=== PATIENT | male | born 1955 | race Caucasian/White ===

== ENCOUNTER 2019-02-14 11:44 | Observation (INO) | payer MEDICARE, OTHER ==
[~2019-02-14] VITALS: Ht 175.3 cm; Wt 114.4 kg
--- NOTE | 2019-02-14 12:06 | RAD ---
EXAM: CT Head without IV contrast CLINICAL HISTORY: COMPARISON: None. TECHNIQUE: Routine CT of the head without contrast. Soft tissues and bone windows were reviewed. PQRS compliance statement - One or more of the following individualized dose reduction techniques were utilized for this study: 1. Automated exposure control 2. Adjustment of the mA and/or kV according to patient size 3. Use of iterative reconstruction technique FINDINGS: There is no evidence of hemorrhage, mass or extra-axial fluid collection. Briscoe-white differentiation is maintained with no evidence of edema. A few foci of subcortical and periventricular white matter hypoattenuation likely changes of chronic small vessel disease. There is no mass effect or shift of the intracranial structures. The ventricles, basilar cisterns and cortical sulci are normal in size and configuration for the patients stated age. The cerebellum and brainstem are unremarkable. The calvarium demonstrates no evidence of fracture or focal lesion. Patchy ethmoid air cell opacification may be seen with sinusitis. Otherwise the paranasal sinuses and mastoid air cells are clear. The visualized portions of the orbits are normal. IMPRESSION: 1. No evidence for acute intracranial hemorrhage. 2. Patchy ethmoid air cell opacification may be seen with sinusitis. 3. Minimal white matter changes likely be seen with chronic small vessel disease Findings of no evidence for acute cranial hemorrhage were discussed with Dr. Navas at 12:00 PM, 02/14/2019. Electronically signed by: Darin Carson MD (02/14/2019 12:02 PM) [facility]
[2019-02-14 12:19] LABS: HEMATOCRIT 50.9 % (39.0-53.0); HEMOGLOBIN 17.5 g/dL (13.0-17.5); RED BLOOD COUNT 5.43 x10^6/uL (4.30-5.70); RED CELL DISTRIBUTION WIDTH 13.5 % (11.5-14.5); WHITE BLOOD COUNT 8.6 x10^3/uL (4.0-11.0)
[2019-02-14 12:28] LABS: ALBUMIN/GLOBULIN RATIO 1.1 (1.0-1.7); CALCIUM 9.4 mg/dL (8.5-10.1); CREATININE 1.1 mg/dL (0.7-1.3); GFR 67.8; TOTAL BILIRUBIN 0.7 mg/dL (0.2-1.0); TOTAL PROTEIN 7.7 g/dL (6.4-8.2)
--- NOTE | 2019-02-14 12:45 | PHYS DOC ---
Past History Past Medical History: Anxiety, Arrhythmia, Depression, Diabetes, High Cholesterol, Hypertension, Migraines, Other Past Surgical History: Tonsillectomy, Other Smoking: Non-smoker Alcohol Use: Rarely Drug Use: None Adult General Chief Complaint Chief Complaint: NEURO SYMPTOMS/DEFICITS HPI HPI 63-year-old male presents with right-sided facial droop and concern for stroke. The patient was last seen normal at 11 AM. He does not have speech difficulty. He does not have any weakness or loss of coordination. He feels like the right side of his face has different sensation. He is also holding his right arm elevated, but has full motion with it. He denies headache or vision changes. No history of CVA. He has been feeling well prior to this episode. Denies fever or chills. The patient walked into the ED and to his room. Review of Systems Review of Systems Constitutional: Denies fever or chills [] Eyes: Denies change in visual acuity, redness, or eye pain [] HENT: Denies nasal congestion or sore throat [] Respiratory: Denies cough or shortness of breath [] Cardiovascular: No additional information not addressed in HPI [] GI: Denies abdominal pain, nausea, vomiting, bloody stools or diarrhea [] : Denies dysuria or hematuria [] Musculoskeletal: Denies back pain or joint pain [] Integument: Denies rash or skin lesions [] Neurologic: Denies headache. R sided facial numbness. "Strange" feeling in R arm. [] Endocrine: Denies polyuria or polydipsia [] All other systems were reviewed and found to be within normal limits, except as documented in this note. Allergies Allergies Allergies Coded Allergies Type Severity Reaction Last Updated Verified No Known Drug Allergies 08/17/15 No Physical Exam Physical Exam Constitutional: Well developed, well nourished, no acute distress, non-toxic appearance. [] HENT: Normocephalic, atraumatic, bilateral external ears normal, oropharynx moist, no oral exudates, nose normal. [] Eyes: PERRLA, EOMI, conjunctiva normal, no discharge. [] Neck: Normal range of motion, no tenderness, supple, no stridor. [] Cardiovascular:Heart rate regular rhythm, no murmur [] Lungs & Thorax: Bilateral breath sounds clear to auscultation [] Abdomen: Bowel sounds normal, soft, no tenderness, no masses, no pulsatile masses. [] Skin: Warm, dry, no erythema, no rash. [] Back: No tenderness, no CVA tenderness. [] Extremities: No tenderness, no cyanosis, no clubbing, ROM intact, no edema. [] Neurologic: Alert and oriented X 3, See NIH scale below. The facial assymetry is more on the left with smile, but the decreased sensation and inability to lift eyebrow is on the right. [] Psychologic: Affect normal, judgement normal, mood normal. [] Current Patient Data Vital Signs Vital Signs Date Time Temp Pulse Resp B/P (MAP) Pulse Ox O2 Delivery O2 Flow Rate FiO2 02/14/19 11:54 98.2 76 18 93 Room Air 02/14/19 11:53 146/81 (102) Lab Results Laboratory Tests Test 02/14/19 12:01 02/14/19 12:02 Glucose (Fingerstick) 204 mg/dL (70-99) H White Blood Count 8.6 x10^3/uL (4.0-11.0) Red Blood Count 5.43 x10^6/uL (4.30-5.70) Hemoglobin 17.5 g/dL (13.0-17.5) Hematocrit 50.9 % (39.0-53.0) Mean Corpuscular Volume 94 fL (79-100) Mean Corpuscular Hemoglobin 32 pg (25-35) Mean Corpuscular Hemoglobin Concent 34 g/dL (31-37) Red Cell Distribution Width 13.5 % (11.5-14.5) Platelet Count 179 x10^3/uL (140-400) Prothrombin Time 10.9 SEC (9.4-11.4) Prothrombin Time INR 1.1 (0.9-1.1) Activated Partial Thromboplast Time 30 SEC (23-33) Sodium Level 140 mmol/L (136-145) Potassium Level 4.0 mmol/L (3.5-5.1) Chloride Level 101 mmol/L (98-107) Carbon Dioxide Level 29 mmol/L (21-32) Anion Gap 10 (6-14) Blood Urea Nitrogen 11 mg/dL (8-26) Creatinine 1.1 mg/dL (0.7-1.3) Estimated GFR (Cockcroft-Gault) 67.8 BUN/Creatinine Ratio 10 (6-20) Glucose Level 217 mg/dL (70-99) H Calcium Level 9.4 mg/dL (8.5-10.1) Total Bilirubin 0.7 mg/dL (0.2-1.0) Aspartate Amino Transferase (AST) 38 U/L (15-37) H Alanine Aminotransferase (ALT) 52 U/L (16-63) Alkaline Phosphatase 69 U/L (46-116) Troponin I Quantitative < 0.017 ng/mL (0-0.055) Total Protein 7.7 g/dL (6.4-8.2) Albumin 4.0 g/dL (3.4-5.0) Albumin/Globulin Ratio 1.1 (1.0-1.7) EKG EKG [] Radiology/Procedures Radiology/Procedures [] Impressions: EXAM: CT Head without IV contrast CLINICAL HISTORY: COMPARISON: None. TECHNIQUE: Routine CT of the head without contrast. Soft tissues and bone windows were reviewed. PQRS compliance statement - One or more of the following individualized dose reduction techniques were utilized for this study: 1. Automated exposure control 2. Adjustment of the mA and/or kV according to patient size 3. Use of iterative reconstruction technique FINDINGS: There is no evidence of hemorrhage, mass or extra-axial fluid collection. Briscoe-white differentiation is maintained with no evidence of edema. A few foci of subcortical and periventricular white matter hypoattenuation likely changes of chronic small vessel disease. There is no mass effect or shift of the intracranial structures. The ventricles, basilar cisterns and cortical sulci are normal in size and configuration for the patients stated age. The cerebellum and brainstem are unremarkable. The calvarium demonstrates no evidence of fracture or focal lesion. Patchy ethmoid air cell opacification may be seen with sinusitis. Otherwise the paranasal sinuses and mastoid air cells are clear. The visualized portions of the orbits are normal. IMPRESSION: 1. No evidence for acute intracranial hemorrhage. 2. Patchy ethmoid air cell opacification may be seen with sinusitis. 3. Minimal white matter changes likely be seen with chronic small vessel disease Findings of no evidence for acute cranial hemorrhage were discussed with Dr. Atkinson at 12:00 PM, 02/14/2019. Electronically signed by: Darin Hassan MD (02/14/2019 12:02 PM) [facility] DICTATED AND SIGNED BY: DARIN HASSAN MD DATE: 02/14/19 1208 CC: MIKY ATKINSON DO; DEE DEE NUNEZ MD ~ Course & Med Decision Making Course & Med Decision Making Pertinent Labs and Imaging studies reviewed. (See chart for details) The patient's NIH scale on arrival was at 2. There are some contradictory findings with the uneven smile is more affected on the left, but his sensation changes on the right. He also does not have a linear right raise the eyebrow on the right side same as the left. His head CT is negative. His labs are unremarkable except for an elevated blood sugar of over 200. His anion gap is no rmal. His urinalysis is unremarkable. I discussed the patient with Dr. Campbell, neurology and Dr. Nunez. Dr. Nunez has accepted him for admission and further workup. The patient is in agreement with this plan. [] Dragon Disclaimer Dragon Disclaimer This electronic medical record was generated, in whole or in part, using a voice recognition dictation system. NIH Stroke Scale: NIH Stroke Scale Response (Comments) Value Level of Consciousness: 0 Alert/Responsive 0 LOC Questions: 0 Answers both correctly 0 LOC Commands: 0 Performs both tasks 0 Best Gaze: 0 Normal 0 Visual: 0 No visual loss 0 Facial Palsy: 1 Minor paralysis 1 Motor - Left Arm 0 No drift 0 Motor - Right Arm 0 No drift 0 Motor - Left Leg 0 No drift 0 Motor: Right Leg 0 No drift 0 Limb Ataxia: 0 Absent 0 Sensory: 1 Mid to moderate loss 1 Best Language: 0 Normal 0 Dysathria: 0 Normal 0 Extinction and Inattention: 0 Normal 0 Total 2 Departure Departure: Impression: Primary Impression: Neurological symptoms Additional Impression: Hyperglycemia Disposition: ADMITTED INPATIENT Admitting Physician: Dee Dee Nunez Condition: STABLE Referrals: DEE DEE NUNEZ MD (PCP) Problem Qualifiers MIKY ATKINSON DO Feb 14, 2019 12:45
--- NOTE | 2019-02-14 13:10 | EKG ---
[address] [address] Test Date: 2019-02-14 Test Time: 12:10:18 Pat Name: PANKAJ BAEZ Department: Room: Gender: M [employer]: : [id number] Requested By: MIKY ATKINSON Order Number: [id number] Reading MD: Ab Holly Measurements Intervals [place] Rate: 79 P: 42 GA: 170 QRS: 61 QRSD: 104 T: 31 QT: 384 QTc: 447 Interpretive Statements SINUS RHYTHM Electronically Signed On 03-04-2019 11:58:35 CDT by Ab Holly
[2019-02-14] MEDS ORDERED: ONDANSETRON PF 4 MG/2 ML VIAL. IV PRN (14:00)
[2019-02-14 16:19] VITALS: BP 152/94
[2019-02-14] MEDS ORDERED: INSU200I4 SQ (17:44)
[2019-02-14] MEDS ORDERED: SIMV40TA3 PO (17:44)
[2019-02-14] MEDS ORDERED: GABA400C7 PO (17:44)
[2019-02-14] MEDS ORDERED: METF10007 PO (17:44)
[2019-02-14] MEDS ORDERED: CITA20TA6 PO (17:44)
[2019-02-14] MEDS ORDERED: ALPR0.5T6 PO (17:44)
[2019-02-14 18:43] VITALS: BP 158/93
--- NOTE | 2019-02-14 23:05 | RAD ---
PA and lateral chest. HISTORY: Short of air PA and lateral views were taken of the chest. Patient's taken a poor inspiration. There is no pleural effusion. There is mild linear atelectasis without other infiltrates. IMPRESSION: 1. Poor inspiration. 2. Linear atelectasis without other infiltrates. Electronically signed by: Anant Brown MD (02/14/2019 11:02 PM) [facility]
[2019-02-15 05:37] VITALS: BP 148/88
[2019-02-15] MEDS ORDERED: ALPRAZolam 0.25 MG TABLET PO PRN (08:45)
[2019-02-15] MEDS ORDERED: methylPREDNISolone SOD SUCC PF 40 MG/ML VIAL. IV SCH (09:00)
[2019-02-15] MEDS ORDERED: GABAPENTIN 400 MG CAPSULE. PO SCH (09:00)
[2019-02-15] MEDS ORDERED: metFORMIN 500 MG TABLET PO SCH (09:00)
[2019-02-15] MEDS ORDERED: SIMVASTATIN 40 MG TABLET. PO SCH (09:00)
[2019-02-15] MEDS ORDERED: CITALOPRAM 20 MG TABLET. PO SCH (09:00)
[2019-02-15] MEDS ORDERED: ASPIRIN ENTERIC COATED 81 MG TABLET.DR. PO SCH (09:30)
--- NOTE | 2019-02-15 09:47 | HP ---
ADMIT DATE: HISTORY OF PRESENT ILLNESS: A 63-year-old male came in through the Emergency Room. He had noticed a facial droop, right side of his face and some difficulty with speech, had some mild difference in sensation in his right arm. No previous history of stroke, although he is a diabetic. The patient came into the Emergency Room and most of the symptoms had resolved. The patient was admitted for rule out TIA versus stroke in evolution. Workup had been extensive. PAST MEDICAL HISTORY: Includes that of neurological disorder, TBI, headaches, hypercholesterolemia, SBO, multiple broken bones in the past, arthritis, endocrine disorder, diabetes, influenza vaccination up-to-date. ALLERGIES: No known allergies. SOCIAL HISTORY: The patient denies smoking, alcohol or drug use. FAMILY HISTORY: Positive for heart disease in the parents, otherwise unremarkable. MEDICATIONS: Xanax 0.5, Celexa 20, gabapentin 400, insulin metformin 1000 b.i.d., Zocor 40. ALLERGIES: No known allergies. CODE STATUS: The patient is full code. REVIEW OF SYSTEMS: Outside of the facial drooping that he had and seemed to resolve. He denied any headaches, visual changes, blurred vision, double vision. Denied any drooling. He did have trouble finding some of his words. The patient also noted that had resolved. The patient denied chest pain, shortness of breath, palpitations, fluttering, diaphoresis, nausea, vomiting, abdominal pain, problems with bowels or bladder. Neurologically intact. PHYSICAL EXAMINATION: GENERAL: He is a pleasant white male, in presently no apparent distress. VITAL SIGNS: Blood pressure 152/94, respiratory rate 20, pulse 85, afebrile. HEENT: The patient's head was atraumatic, normocephalic. Eyes: PERRLA without jaundice. Good symmetry to the face. The eyes were PERRL. Cranial nerves 2-12 are perfectly intact. LUNGS: Otherwise, lungs clear. CARDIOVASCULAR: Regular sinus rhythm, S1, S2, without murmur, rub, thrill, or extra heart sound. ABDOMEN: Soft, nontender, protuberant. EXTREMITIES: No clubbing, cyanosis or edema. NEUROLOGIC: Stable at this time. Speech fluent, spontaneous. Appropriate alternating hand movements [id number], [id number] all normal. LABORATORY DATA: CBC normal. Blood sugar has been running high 160-217. Otherwise, BUN and creatinine stable. IMPRESSION: Transient ischemic attack versus stroke in evolution, high risk with blood sugar, also has obesity. Needs to work on both of those, obviously to keep down his risk. Start him on baby aspirin, have him seen by Neurology, Dr. Campbell and make further evaluation on him as indicated per those results. DEE DEE NUNEZ MD DR: YANIQUE/jonah JOB#: [id number] / [id number]
[2019-02-15] MEDS ORDERED: ASPI-612 PO (10:10)
--- NOTE | 2019-02-15 19:31 | RAD ---
Carotid Doppler ultrasound INDICATION: Right facial numbness and drooping. COMPARISON: None are available TECHNIQUE: Color, grayscale and doppler ultrasound images obtained of the carotid system bilaterally. Percent stenosis is estimated using criteria that correlates with NASCET methodology. FINDINGS: Velocites and ratios are listed below. Velocites are as follows in cm/s: Right CCA PSV: 92 Right ICA PSV: 59 Right ICA EDV: 24 Right ICA/CCA Ratio: 0.74 Right Vertebral Artery: antegrade Left CCA PSV: 121 Left ICA PSV: 73 Left ICA EDV: 28 Left ICA/CCA Ratio: 1.1 Left Vertebral Arery: antegrade No significant plaque or narrowing is seen on the grayscale or color images. IMPRESSION: No evidence of hemodynamically significant stenosis. Electronically signed by: Navneet Duvall MD (02/15/2019 4:54 PM) [facility]
--- NOTE | 2019-02-16 00:22 | PN ---
DATE: 02/15/2019 SUBJECTIVE: The patient denies any new medical or neurological complaints. He denies numbness, weakness, headaches, visual disturbances, dysphagia, dysarthria. He continues to have some pain behind the right ear. OBJECTIVE: GENERAL: Well-developed, obese male, not in acute distress. VITAL SIGNS: Blood pressure 148/88, respiratory rate 18, pulse 69, oxygen saturation is 94%, temperature 97.8. HEENT: Normocephalic, atraumatic. Otherwise, unremarkable except for tender lesion between the right ear and jaw. There is no swelling or palpable mass. NECK: Supple. Negative for carotid bruit, lymphadenopathy or thyromegaly. LUNGS: Clear to A and P. CARDIOVASCULAR: Regular rhythm, normal S1, S2. ABDOMEN: Soft. Bowel sounds positive. EXTREMITIES: Negative for cyanosis, clubbing or edema. NEUROLOGICAL EXAM: Mental Status: The patient is alert and oriented x 3. Speech is fluent. There is no language dysfunction. Cranial nerves are intact. No focal motor or sensory deficit. Deep tendon reflexes are symmetric and active without pathologic responses. Gait and coordination are normal. IMPRESSION: 1. Questionable transient ischemic attack -- resolved with normal current neurological examination. 2. Abnormal head CT scan consistent with sinusitis. 3. Tender lesion between the right ear and jaw without evidence of mass or cyst. 4. Multiple medical problems include diabetes mellitus, hypertension, hyperlipidemia, anxiety, depression. RECOMMENDATIONS: Continue with current management and home medications. Follow up with Dr. William after 1 week from discharge. M Dawna WILBURN MD DR: GRAYSON/jonah JOB#: [id number] / [id number]
--- NOTE | 2019-02-16 02:49 | CONS ---
DATE OF CONSULTATION: 02/14/2019 REFERRING PHYSICIAN: Dr. William. REASON FOR CONSULTATION: Rule out stroke versus TIA. HISTORY OF PRESENT ILLNESS: This is a 63-year-old right-handed male who was admitted to Emergency Room after he presented with right-sided facial droop, intermittent numbness and paresthesia of the right face and right hand. The symptoms began today at 11:00 a.m. In the Emergency Room, the patient was found to be alert, oriented and he denies weakness of the extremities, visual disturbances, slurred speech, chest pain, shortness of breath or palpitation, dysarthria or dysphagia. Initial nonenhanced head CT scan revealed no evidence of acute intracranial process. The patient was admitted for further observation. During the interview, the patient complains of pain behind the right ear with tenderness to touch. Otherwise, he stated his numbness of the hand has resolved. He denies headaches, nausea or vomiting. PAST MEDICAL HISTORY: Significant for history of cardiac arrhythmia, anxiety, depression, diabetes mellitus, hyperlipidemia, hypertension, migraine headaches, and history of stroke. PAST SURGICAL HISTORY: Tonsillectomy, multiple broken bones. FAMILY HISTORY: Noncontributory. SOCIAL HISTORY: The patient denies smoking, alcohol drinking, or illicit drug use. CURRENT HOME MEDICATIONS: Alprazolam 0.5 mg daily, citalopram 20 mg daily, gabapentin 400 mg t.i.d., insulin 200 units subcutaneously at bedtime, metformin 1000 mg b.i.d. and simvastatin 40 mg daily. ALLERGIES: No known drug allergies. REVIEW OF SYSTEMS: A 10-point review of system was performed as mentioned above in history of present illness, otherwise unremarkable. PHYSICAL EXAMINATION: GENERAL: Obese white male, not in acute distress. VITAL SIGNS: Blood pressure 152/94, respiratory rate 20, pulse is 85, temperature is 97.8, oxygen saturation 93% on room air. HEENT: Normocephalic, atraumatic, otherwise unremarkable. NECK: Supple. Negative for carotid bruit, lymphadenopathy or thyromegaly. LUNGS: Clear to A and P. CARDIOVASCULAR: Regular rate and rhythm, normal S1, S2. ABDOMEN: Soft. Bowel sounds positive. EXTREMITIES: Negative for cyanosis, clubbing or edema. NEUROLOGICAL EXAM: Mental Status: The patient is alert and oriented x 3. Speech is fluent. There is no language dysfunction. Memory, judgment, and abstracting thinking are normal. The patient denies hallucination or delusion. CRANIAL NERVES: Visual roca are full. The pupils are reactive to light and accommodation. The extraocular movements are intact. There is no nystagmus. There is no facial motor or sensory deficit. Hearing is intact bilaterally. The palate is elevated symmetrically. Sternocleidomastoid muscles are powerful bilaterally. The patient shrugs his shoulders symmetrically, protrudes his tongue in the midline without fasciculation or atrophy. MOTOR EXAMINATION: No focal muscle bulk was seen. The tone is normal. The strength is 5/5 throughout. Sensory examination revealed normal pinprick, light touch, vibratory and position senses. Deep tendon reflexes were symmetric and active without pathology responses. Gait and coordination were normal. LABORATORY DATA: CBC revealed white blood cells of 8.6 thousand, hemoglobin 17.5, hematocrit 50.9, platelet count 179. Chemistry revealed sodium of 140, potassium 4, chloride 101, CO2 of 29, BUN 11, creatinine 1.1, glucose 217 and calcium 9.4. Troponin level is normal. Coagulation is normal. Coagulation: PT 10.9, PTT is 30. DIAGNOSTIC DATA: Nonenhanced head CT scan revealed no evidence of acute intracranial process and possible patchy ethmoid consistent with sinusitis and minimum small-vessel ischemic changes. Chest x-ray revealed no evidence of infiltrates. IMPRESSION: 1. Questionable transient ischemic attack with normal current neurological examination. 2. Abnormal head CT scan consistent with sinusitis. 3. Tender area behind the right ear of unknown etiology. 4. Multiple medical problems include hypertension, hyperlipidemia, diabetes mellitus, history of stroke, anxiety and depression. RECOMMENDATIONS: Continue with current home medication. The patient has been on antibiotic for possible underlying sinusitis. M Dawna WILBURN MD DR: GRAYSON/jonah JOB#: [id number] / [id number]
== END 2019-02-15 12:08 | disposition home or self-care (01) ==
LOC: ER 11:44 → INTOOBSV 15:38 → 1 SOUTH 15:38
PROVIDERS: ADMIT Family Medicine; ATTEND Family Medicine
DX: E11.65 Type 2 diabetes mellitus with hyperglycemia (principal); F41.9 Anxiety disorder, unspecified; F32.9 Major depressive disorder, single episode, unspecified; E78.00 Pure hypercholesterolemia, unspecified; I10 Essential (primary) hypertension; G43.909 Migraine, unspecified, not intractable, without status migrainosus; K56.609 Unspecified intestinal obstruction, unspecified as to partial versus complete obstruction; M19.90 Unspecified osteoarthritis, unspecified site; E66.9 Obesity, unspecified; E78.5 Hyperlipidemia, unspecified; R29.810 Facial weakness; Z79.899 Other long term (current) drug therapy; Z79.4 Long term (current) use of insulin; Z86.73 Personal history of transient ischemic attack (TIA), and cerebral infarction without residual deficits
CPT/HCPCS: 36415; 70450; 71046; 80053; 80061; 82947; 84484; 85027; 85610; 85730; 93005; 93880; 96365; 96375; 99284; G0378; J0696; J2920; G0379

== ENCOUNTER 2020-11-23 21:21 | Emergency (ER) | payer MEDICARE ==
[~2020-11-23] VITALS: Ht 175.3 cm; Wt 104.5 kg
[~2020-11-23 21:21] MED LIST: ALPR0.5T6 PO; ASPI-889 PO; CITA20TA6 PO; GABA400C7 PO; INSU200I4 SQ; METF10007 PO; SIMV40TA18 PO
[2020-11-23] MEDS ORDERED: ONDANSETRON PF 4 MG/2 ML VIAL. IVP ONE (21:45)
[2020-11-23] MEDS ORDERED: IOHEXOL 300 MG/ML 75 ML VIAL. IV ONE (22:00)
[2020-11-23] MEDS ORDERED: CONTRAST GIVEN. MC PRN (22:15)
[2020-11-23 22:18] LABS: BASO # 0.2 x10^3/uL (0.0-0.2); BASO % 1 % (0-3); EOS # 0.4 x10^3/uL (0.0-0.7); EOS % 3 % (0-3); HEMATOCRIT 50.2 % (39.0-53.0); HEMOGLOBIN 17.1 g/dL (13.0-17.5); LYMPH # 4.3 x10^3/uL (1.0-4.8); LYMPH % 28 % (24-48); MEAN CORPUSCULAR HEMOGLOBIN 32 pg (25-35); MEAN CORPUSCULAR HGB CONC 34 g/dL (31-37); MEAN CORPUSCULAR VOLUME 94 fL (79-100); MONO # 1.1 x10^3/uL (0.0-1.1); MONO % 7 % (0-9); NEUT # 9.2 x10^3uL (1.8-7.7); NEUT % 61 % (31-73); PLATELET COUNT 187 x10^3/uL (140-400); RED BLOOD COUNT 5.34 x10^6/uL (4.30-5.70); RED CELL DISTRIBUTION WIDTH 12.9 % (11.5-14.5); WHITE BLOOD COUNT 15.3 x10^3/uL (4.0-11.0)
[2020-11-23 22:27] LABS: CALCIUM 9.2 mg/dL (8.5-10.1); CREATININE 1.1 mg/dL (0.7-1.3); GFR 67.4; POTASSIUM 3.8 mmol/L (3.5-5.1)
[2020-11-23 22:38] LABS: % BANDS 3 % (0-9); % EOS 2 % (0-5); % LYMPHS 22 % (24-48); % MONOS 8 % (0-10); % SEGS 65 % (35-66); PLT ESTIMATE ADEQUATE (ADEQUATE)
[2020-11-23 22:41] LABS: ALBUMIN/GLOBULIN RATIO 1.2 (1.0-1.7); TOTAL BILIRUBIN 1.5 mg/dL (0.2-1.0); TOTAL PROTEIN 7.4 g/dL (6.4-8.2)
[2020-11-23] MEDS ORDERED: PIPERACILLIN/TAZOBACTAM 4.5 GM in IV NORMAL SALINE 50ML 50 ML IV ONE (22:45)
[2020-11-23] MEDS ORDERED: IV RINGERS SOLUTION,LACTATED 1,000 ML IV ONE (22:45)
[2020-11-23] MEDS ORDERED: PIPERACILLIN/TAZOBACTAM 4.5 GM VIAL IV ONE (23:10)
[2020-11-23] MEDS ORDERED: IV NORMAL SALINE 50ML 50 ML ONE (23:10)
--- NOTE | 2020-11-23 23:11 | RAD ---
CT scan of the abdomen and pelvis with contrast 11/23/2020 CLINICAL HISTORY: Abdominal pain. Nausea and vomiting. TECHNIQUE: After the intravenous administration of 75 cc of Omnipaque 300 only, contiguous, 2.5 mm ax ial sections were obtained through the abdomen and pelvis. One or more of the following individualized dose reduction techniques were utilized for this study: 1. Automated exposure control. 2. Adjustment of the mA and/or kV according to patient size. 3. Use of iterative reconstruction technique. FINDINGS: Images through the lung bases demonstrate mild cardiomegaly. Dependent subsegmental atelect asis is seen bilaterally. Calcified granulomas are seen involving both lower lobes. The liver parenchyma has a decreased attenuation consistent with fatty infiltration. Calcified granul omas are seen scattered throughout the liver and spleen. The adrenal glands and left kidney are withi n normal limits. Rounded low-attenuation lesions are seen involving both kidneys which measure 3 mm t o 5 mm in size. These likely represent cysts. No further imaging evaluation is recommended. Increased attenuation is seen within the fat surrounding the pancreas consistent with acute pancreati tis. No pancreatic pseudocyst is seen. The common hepatic and common bile duct are dilated measuring 9 mm in diameter. A 6 mm calcification is seen along the medial wall of the second portion the duoden um in the region of the ampulla consistent with choledocholithiasis. The gallbladder is slightly cont racted. There appear to be small gallstones within the gallbladder. Atherosclerotic calcification abdominal aorta is seen. The abdominal aorta tapers normally. No free f luid or free air is seen within the abdomen. There is no evidence of bowel obstruction. The appendix is well-visualized and is within normal limits. Images through the pelvis demonstrate the urinary bladder distended with urine. The prostate gland is enlarged likely related to BPH. Calcifications are seen within the pelvis consistent with phlebolith s. No free fluid is seen. Degenerative changes are seen involving the lower thoracic and throughout t he lumbar spine along with both hips. IMPRESSION: Findings are seen consistent with acute pancreatitis. No pancreatic pseudocyst is seen. T here is evidence of cholelithiasis with a 6 mm choledocholith in the region of the ampulla as discuss ed above. Electronically signed by: Eduard Escamilla MD (11/23/2020 11:08 PM) [id number]
--- NOTE | 2020-11-23 23:23 | PHYS DOC ---
Past History Past Medical History: Anxiety, Arrhythmia, Depression, Diabetes, High Cholesterol, Hypertension, Migraines, Other Past Surgical History: Tonsillectomy, Other Smoking: Non-smoker Alcohol Use: Rarely Drug Use: None Adult General Chief Complaint Chief Complaint: GI PROBLEM HPI HPI Patient is a 65-year-old male with a past medical history of insulin-dependent diabetes who presents to the emergency department with a chief complaint of abdominal pain. States that about 2 hours before coming into the emergency department he had acute abdominal pain, 8 out of 10, sharp in nature just above his bellybutton with some nausea and vomiting that were nonbloody nonbilious. States he is never had anything like this before denies any recent traumas, travels, illnesses, fevers, chest pain, shortness of breath, dysuria, hematuria or blood in the stool. Review of Systems Review of Systems Review of systems otherwise unremarkable except noted in HPI Current Medications Current Medications Current Medications Medications (Trade) Dose Ordered Sig/Fabiola Start Time Stop Time Status Last Admin Dose Admin Fentanyl Citrate (Fentanyl 2ml Vial) 75 mcg 1X ONCE 11/23/20 21:45 11/23/20 21:52 DC 11/23/20 21:52 75 MCG Info (Do NOT chart on this entry -- for MONITORING) 1 each PRN DAILY PRN 11/23/20 22:15 11/25/20 22:14 Iohexol (Omnipaque 300 Mg/ml) 75 ml 1X ONCE 11/23/20 22:00 11/23/20 22:10 DC 11/23/20 22:34 75 ML Lactated Ringer's 1,000 ml @ 1,000 mls/hr 1X ONCE 11/23/20 22:45 11/23/20 23:44 11/23/20 22:45 1,000 MLS/HR Ondansetron HCl (Zofran) 8 mg 1X ONCE 11/23/20 21:45 11/23/20 21:52 DC 11/23/20 21:52 8 MG Piperacillin Sod/ Tazobactam Sod (Zosyn) 4.5 gm STK-MED ONCE 11/23/20 23:10 11/23/20 23:10 DC Piperacillin Sod/ Tazobactam Sod 4.5 gm/Sodium Chloride 50 ml @ 100 mls/hr 1X ONCE 11/23/20 22:45 11/23/20 23:14 DC 11/23/20 23:15 100 MLS/HR Sodium Chloride 50 ml @ As Directed STK-MED ONCE 11/23/20 23:10 11/23/20 23:10 DC Allergies Allergies Allergies Coded Allergies Type Severity Reaction Last Updated Verified morphine Allergy Unknown 11/23/20 Yes Physical Exam Physical Exam Constitutional: Well developed, well nourished, no acute distress, non-toxic appearance. [] HENT: Normocephalic, atraumatic, bilateral external ears normal, oropharynx moist, no oral exudates, nose normal. [] Eyes: conjunctiva normal, no discharge. [] Neck: Normal range of motion, no tenderness, supple, no stridor. [] Cardiovascular:Heart rate regular rhythm, no murmur [] Lungs & Thorax: Bilateral breath sounds clear to auscultation [] Abdomen: soft, global tenderness with no rebound or guarding, no masses, no pulsatile masses. [] Skin: Warm, dry, no erythema, no rash. [] Back: No tenderness, no CVA tenderness. [] Extremities: No tenderness, no cyanosis, no clubbing, ROM intact, no edema. [] Neurologic: Alert and oriented X 3, normal motor function, normal sensory f unction, no focal deficits noted. [] Psychologic: Affect normal, judgement normal, mood normal. [] Current Patient Data Vital Signs Vital Signs Date Time Temp Pulse Resp B/P (MAP) Pulse Ox O2 Delivery O2 Flow Rate FiO2 11/23/20 22:50 18 11/23/20 21:26 97.0 89 156/57 (90) 92 Room Air Lab Results Laboratory Tests Test 11/23/20 21:45 White Blood Count 15.3 x10^3/uL (4.0-11.0) H Red Blood Count 5.34 x10^6/uL (4.30-5.70) Hemoglobin 17.1 g/dL (13.0-17.5) Hematocrit 50.2 % (39.0-53.0) Mean Corpuscular Volume 94 fL (79-100) Mean Corpuscular Hemoglobin 32 pg (25-35) Mean Corpuscular Hemoglobin Concent 34 g/dL (31-37) Red Cell Distribution Width 12.9 % (11.5-14.5) Platelet Count 187 x10^3/uL (140-400) Neutrophils (%) (Auto) 61 % (31-73) Lymphocytes (%) (Auto) 28 % (24-48) Monocytes (%) (Auto) 7 % (0-9) Eosinophils (%) (Auto) 3 % (0-3) Basophils (%) (Auto) 1 % (0-3) Neutrophils # (Auto) 9.2 x10^3uL (1.8-7.7) H Lymphocytes # (Auto) 4.3 x10^3/uL (1.0-4.8) Monocytes # (Auto) 1.1 x10^3/uL (0.0-1.1) Eosinophils # (Auto) 0.4 x10^3/uL (0.0-0.7) Basophils # (Auto) 0.2 x10^3/uL (0.0-0.2) Segmented Neutrophils % 65 % (35-66) Band Neutrophils % 3 % (0-9) Lymphocytes % 22 % (24-48) L Monocytes % 8 % (0-10) Eosinophils % 2 % (0-5) Platelet Estimate Adequate (ADEQUATE) Sodium Level 141 mmol/L (136-145) Potassium Level 3.8 mmol/L (3.5-5.1) Chloride Level 101 mmol/L (98-107) Carbon Dioxide Level 25 mmol/L (21-32) Anion Gap 15 (6-14) H Blood Urea Nitrogen 10 mg/dL (8-26) Creatinine 1.1 mg/dL (0.7-1.3) Estimated GFR (Cockcroft-Gault) 67.4 BUN/Creatinine Ratio 9 (6-20) Glucose Level 225 mg/dL (70-99) H Lactic Acid Level 3.9 mmol/L (0.4-2.0) H Calcium Level 9.2 mg/dL (8.5-10.1) Total Bilirubin 1.5 mg/dL (0.2-1.0) H Aspartate Amino Transferase (AST) 295 U/L (15-37) H Alanine Aminotransferase (ALT) 141 U/L (16-63) H Alkaline Phosphatase 100 U/L (46-116) Troponin I Quantitative < 0.017 ng/mL (0-0.055) Total Protein 7.4 g/dL (6.4-8.2) Albumin 4.0 g/dL (3.4-5.0) Albumin/Globulin Ratio 1.2 (1.0-1.7) Lipase Pending EKG EKG [] Radiology/Procedures Radiology/Procedures [] CT scan of the abdomen and pelvis with contrast 11/23/2020 CLINICAL HISTORY: Abdominal pain. Nausea and vomiting. TECHNIQUE: After the intravenous administration of 75 cc of Omnipaque 300 only, contiguous, 2.5 mm axial sections were obtained through the abdomen and pelvis. One or more of the following individualized dose reduction techniques were utilized for this study: 1. Automated exposure control. 2. Adjustment of the mA and/or kV according to patient size. 3. Use of iterative reconstruction technique. FINDINGS: Images through the lung bases demonstrate mild cardiomegaly. Dependent subsegmental atelectasis is seen bilaterally. Calcified granulomas are seen in volving both lower lobes. The liver parenchyma has a decreased attenuation consistent with fatty infiltration. Calcified granulomas are seen scattered throughout the liver and spleen. The adrenal glands and left kidney are within normal limits. Rounded lo w-attenuation lesions are seen involving both kidneys which measure 3 mm to 5 mm in size. These likely represent cysts. No further imaging evaluation is recommended. Increased attenuation is seen within the fat surrounding the pancreas consistent with acute pancreatitis. No pancreatic pseudocyst is seen. The common hepatic and common bile duct are dilated measuring 9 mm in diameter. A 6 mm calcification is seen along the medial wall of the second portion the duodenum in the region of the ampulla consistent with choledocholithiasis. The gallbladder is slightly contracted. There appear to be small gallstones within the gallbladder. Atherosclerotic calcification abdominal aorta is seen. The abdominal aorta tapers normally. No free fluid or free air is seen within the abdomen. There is no evidence of bowel obstruction. The appendix is well-visualized and is within normal limits. Images through the pelvis demonstrate the urinary bladder distended with urine. The prostate gland is enlarged likely related to BPH. Calcifications are seen within the pelvis consistent with phleboliths. No free fluid is seen. Degenerative changes are seen involving the lower thoracic and throughout the lumbar spine along with both hips. IMPRESSION: Findings are seen consistent with acute pancreatitis. No pancreatic pseudocyst is seen. There is evidence of cholelithiasis with a 6 mm choledocholith in the region of the ampulla as discussed above. Electronically signed by: Eduard Escamilla MD (11/23/2020 11:08 PM) [id number] Heart Score C/O Chest Pain: No Risk Factors: Risk Factors: DM, Current or recent (<one month) smoker, HTN, HLP, family history of CAD, obesity. Risk Scores: Risk Factors: DM, Current or recent (<one month) smoker, HTN, HLP, family history of CAD, obesity. Course & Med Decision Making Course & Med Decision Making Patient is a 65-year-old male who presents with acute abdominal pain, nausea and vomiting Vital signs notable for hypertension. Physical exam noted above. Patient placed on the monitor with IV access established and IV fluid given. Zofran given for nausea and fentanyl given for pain. EKG noted above with no STEMI. Troponin normal. Laboratory analysis notable for leukocytosis, elevated lactate at 3.9, elevated liver enzymes and elevated lipase. CT consistent with acute pancreatitis secondary to choledocholithiasis. Blood cultures obtained. Patient started on Zosyn. Continued on IV fluid resuscitation and pain medication. Discussed all findings with patient and advised transfer and admission to [facility] for continued evaluation and treatment of his pancreatitis/choledocholithiasis. Patient grateful, verbalized understanding and agreed with plan transfer and admission. [] Dragon Disclaimer Dragon Disclaimer This electronic medical record was generated, in whole or in part, using a voice recognition dictation system. Departure Departure: Impression: Primary Impression: Pancreatitis Additional Impression: Choledocholithiasis Disposition: 02 [facility] Admitting Physician: Other Condition: STABLE Referrals: DEE DEE NUNEZ MD (PCP) Problem Qualifiers YESENIA DORSEY MD Nov 23, 2020 23:23
--- NOTE | 2020-11-24 00:50 | EKG ---
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
[2020-11-24] MEDS ORDERED: METOCLOPRAMIDE HCL 10 MG/2 ML VIAL. IVP ONE (01:15)
[2020-11-24 01:17] VITALS: BP 164/86
[2020-11-24 01:34] LABS: BACTERIA,URINE 0 /HPF (0-FEW); BILIRUBIN,URINE NEG (NEG); CLARITY,URINE CLEAR; COLOR,URINE YELLOW; GLUCOSE,URINE >=1000 mg/dL (NEG); NITRITE,URINE NEG (NEG); RBC,URINE 0 /HPF (0-2); SQUAMOUS EPITHELIAL CELL,UR OCC /LPF; UROBILINOGEN,URINE 0.2 mg/dL (0.2 mg/dL); WBC,URINE RARE /HPF (0-4)
== END 2020-11-24 01:19 | disposition short-term general hospital (02) ==
LOC: ER 21:21
DX: K85.90 Acute pancreatitis without necrosis or infection, unspecified (principal); K80.50 Calculus of bile duct without cholangitis or cholecystitis without obstruction; R11.2 Nausea with vomiting, unspecified; F41.9 Anxiety disorder, unspecified; F32.9 Major depressive disorder, single episode, unspecified; E11.9 Type 2 diabetes mellitus without complications; E78.00 Pure hypercholesterolemia, unspecified; I10 Essential (primary) hypertension; G43.909 Migraine, unspecified, not intractable, without status migrainosus; Z88.5 Allergy status to narcotic agent
CPT/HCPCS: 36415; 74177; 80053; 81001; 83605; 83690; 84484; 85007; 85025; 87040; 93005; 96361; 96365; 96375; 96376; 99285; J2405; J2543; J2765; J3010; J7120; Q9967; 87205